=== PATIENT | female | born 1980 | race Caucasian/White ===

== ENCOUNTER 2016-02-21 23:55 | Emergency (ER) | payer OTHER ==
[2016-02-22 00:30] LABS: HCG,QUALITATIVE URINE NEGATIVE
--- NOTE | 2016-02-22 08:09 | RAD ---
ANKLE-RIGHT 3 VIEW COMPARISON: None HISTORY: Right ankle pain after inversion injury on stairs. Initial encounter. FINDINGS Views: Right ankle AP, mortise, lateral. Bones: Normal Joints: Normal Soft tissues: Normal IMPRESSION: 1. Normal 3 views of the right ankle.
== END 2016-02-22 04:08 | disposition home or self-care (01) ==
LOC: ED 23:55
DX: S93.401A Sprain of unspecified ligament of right ankle, initial encounter (principal); F17.210 Nicotine dependence, cigarettes, uncomplicated; W10.9XXA Fall (on) (from) unspecified stairs and steps, initial encounter; Y92.9 Unspecified place or not applicable